=== PATIENT | female | born 1985 | race Caucasian/White ===

== ENCOUNTER 2019-05-05 21:22 | Emergency (ER) | payer BC ==
[~2019-05-05] VITALS: Ht 165.1 cm; Wt 108.4 kg
[~2019-05-05 21:22] MED LIST: BACTRIM DS TAB1 EACH PO; BENTYL 20 MG TA20 M1 PO; CARAFATE 1 GM TA1 GM PO; FLEXERIL PO; IBUPROFEN 800800 M1 PO; PEPCID20 MG PO; ZOFRAN ODT4 MG PO
[2019-05-05 21:58] LABS: ABSOLUTE BASOPHILS 0.1 thou/uL (0.0-0.2); ABSOLUTE EOSINOPHILS 0.1 thou/uL (0.0-0.7); ABSOLUTE LYMPHOCYTES 3.8 thou/uL (0.8-5.3); ABSOLUTE MONOCYTES 0.8 thou/uL (0.0-1.2); ABSOLUTE NEUTROPHILS 7.3 thou/uL (1.6-8.1); BASOPHILS 0.6 %; HEMATOCRIT 35.7 % (37.0-47.0); HEMOGLOBIN 11.8 gm/dL (12.0-15.0); LYMPHOCYTES 31.5 %; MCH 26.5 pg (26.0-34.0); MCV 80.1 fL (80.0-100.0); MONOCYTES 6.4 %; MPV 8.5 fl. (7.2-11.1); NUCLEATED RBCS 0 /100WBC; PLATELET COUNT* 214 thou/uL (150-400); POLYS 60.5 %; RBC 4.45 mil/uL (4.20-5.00); RDW-CV 15.1 % (10.5-14.5); WBC 12.1 thou/uL (4.0-11.0)
[2019-05-05 22:05] LABS: CALCIUM 9.4 mg/dL (8.5-10.1); CREATININE 0.8 mg/dL (0.6-1.3); POTASSIUM 4.6 mmol/L (3.5-5.1)
[2019-05-05] MEDS ORDERED: INDOMETHACIN 2525 MG PO (22:28)
[2019-05-05 22:38] VITALS: BP 118/63
== END 2019-05-05 22:39 | disposition home or self-care (01) ==
LOC: M.ERS 21:22
PROVIDERS: Emergency Medicine
DX: M25.561 Pain in right knee (principal); M10.9 Gout, unspecified

== ENCOUNTER 2021-08-05 12:55 | Emergency (ER) | payer BC ==
[~2021-08-05] VITALS: Ht 165.1 cm; Wt 108.9 kg
[~2021-08-05 12:55] MED LIST changes: +INDOMETHACIN 2525 MG PO
[2021-08-05 13:33] LABS: ABSOLUTE BASOPHILS 0.1 thou/uL (0.0-0.2); ABSOLUTE EOSINOPHILS 0.1 thou/uL (0.0-0.7); ABSOLUTE LYMPHOCYTES 3.2 thou/uL (0.8-5.3); ABSOLUTE MONOCYTES 0.4 thou/uL (0.0-1.2); BASOPHILS 1.2 %; EOSINOPHILS 0.9 %; HEMOGLOBIN 12.1 gm/dL (12.0-15.0); LYMPHOCYTES 29.3 %; MCH 25.9 pg (26.0-34.0); MCHC 32.8 g/dL (28.0-37.0); MCV 78.9 fL (80.0-100.0); MONOCYTES 3.9 %; NUCLEATED RBCS 0 /100WBC; PLATELET COUNT* 241 thou/uL (150-400); POLYS 64.7 %; RBC 4.69 mil/uL (4.20-5.00); RDW-CV 15.2 % (10.5-14.5); WBC 10.8 thou/uL (4.0-11.0)
[2021-08-05 14:07] LABS: CALCIUM 9.4 mg/dL (8.5-10.1); CREATININE 0.8 mg/dL (0.6-1.3); POTASSIUM 3.8 mmol/L (3.5-5.1)
[2021-08-05 14:11] LABS: ALBUMIN 3.8 g/dL (3.4-5.0); TOTAL BILIRUBIN 0.7 mg/dL (<0.1-1.0); TOTAL PROTEIN 7.4 g/dL (6.4-8.2)
[2021-08-05 15:22] VITALS: BP 140/98
== END 2021-08-05 15:22 | disposition home or self-care (01) ==
LOC: M.ERS 12:55
PROVIDERS: Family Medicine
DX: R10.31 Right lower quadrant pain (principal); R63.0 Anorexia; Z90.49 Acquired absence of other specified parts of digestive tract; Z98.890 Other specified postprocedural states